=== PATIENT | female | born 1965 | race African-American/Black ===

== ENCOUNTER 2019-08-19 12:51 | Emergency (ER) | payer MEDICAID ==
[~2019-08-19] VITALS: Ht 162.6 cm; Wt 68.0 kg
[2019-08-19] MEDS ORDERED: METF-815 PO (13:16)
[2019-08-19] MEDS ORDERED: ASPI-1497 PO (13:16)
[2019-08-19] MEDS ORDERED: LISI-186 PO (13:16)
[2019-08-19] MEDS ORDERED: ACETAMINOPHEN 325MG TABLET PO ONE (13:30)
[2019-08-19 14:36] VITALS: BP 141/79
== END 2019-08-19 14:38 | disposition home or self-care (01) ==
LOC: ER 12:51
DX: S90.02XA Contusion of left ankle, initial encounter (principal); E11.9 Type 2 diabetes mellitus without complications; Z98.890 Other specified postprocedural states; Y04.0XXA Assault by unarmed brawl or fight, initial encounter; Y93.89 Activity, other specified; Y92.89 Other specified places as the place of occurrence of the external cause; Y99.8 Other external cause status
CPT/HCPCS: 73610; 99283